=== PATIENT | female | born 1960 | race Caucasian/White ===

== ENCOUNTER 2017-12-26 08:32 | Emergency (ER) | payer MEDICARE | END 2017-12-26 11:32 | disposition home or self-care (01) | LOC: D.ER 08:32 | DX: S46.002A Unspecified injury of muscle(s) and tendon(s) of the rotator cuff of left shoulder, initial encounter (principal); Y04.2XXA Assault by strike against or bumped into by another person, initial encounter; Y93.89 Activity, other specified; Y92.019 Unspecified place in single-family (private) house as the place of occurrence of the external cause; S50.12XA Contusion of left forearm, initial encounter; M79.1 Myalgia; T14.8XXA Other injury of unspecified body region, initial encounter ==

== ENCOUNTER → 2018-01-15 08:40 | Outpatient (CLI) | payer MEDICARE | END | disposition home or self-care (01) | LOC: D.MRI 08:40 | DX: M25.512 Pain in left shoulder (principal) ==

== ENCOUNTER → 2019-06-15 08:30 | Outpatient (CLI) | payer MEDICARE | END | disposition home or self-care (01) | LOC: D.HCCARDIO 08:30 → D.HCCECHO 09:30 | PROVIDERS: ATTEND Internal Medicine Cardiovascular Disease | DX: R07.9 Chest pain, unspecified (principal) ==

== ENCOUNTER 2019-07-08 11:47 | Outpatient (CLI) | payer MEDICARE ==
[~2019-07-08] VITALS: Ht 149.9 cm; Wt 67.3 kg
--- NOTE | ~2019-07-08 | HEMODYNAMI ---
PATIENT:MARTA POST MEDICAL RECORD: [id number] : 64 LOCATION:D.CAT ADMISSION DATE: 07/08/19 Generatedon:07/08/201916:07 Patient name: MARTA POST Patient #: [id number] SSN: [id number] : 1960 Date of study: 07/08/2019 Page: Of Hemodynamic Procedure Report Patient Data Patient Demographics Procedure consent was obtained First Name: MARTA Gender: Female Last Name: SINCERE : 1960 [facility] Initial: J Age: 58 year(s) Patient #: [id number] Race: SSN: [id number] Additional ID: [id number] Contact details [address]: [address] [place] [address] State: [place] City: [place] Zip code: [address] Past Medical History Allergies: No known allergies Admission Admission Data Admission Date: 07/08/2019 Admission Time: 11:47 Arrival Date: 07/08/2019 Arrival Time: 0:00 Admit Source: Other Insurance Payor: Medicare [facility] #: [id number] Height (in.): 59 BSA: 1.62 (m2) Height (cm.): 149.86 BMI: 29.94 (kg/m2) Weight (lbs.): 148.22 Weight (kg.): 67.23 Lab Results Lab Result Date: 07/08/2019 Lab Result Time: 0:00 Biochemistry Name Units Result Min Max BUN mg/dl 9 --(*---)-- 7 18 Creatinine mg/dl 0.9 --(-*--)-- 0.6 1.3 eGFR ml/min 69 *-(----)-- 90 120 NONAFRICAN CBC Name Units Result Min Max Hematocrit % 42.7 --(*---)-- 42 54 Hemoglobin g/dl 14.4 --(*---)-- 13.5 17.5 Procedure Procedure Types Cath Procedure Diagnostic Procedure C [facility] w/Coron[facility] Procedure Description Procedure Date Procedure Date: 07/08/2019 Procedure Start Time: 15:51 Procedure End Time: 16:06 Procedure Staff Name Function Chico Marcos MD Performing Physician Kemi Lacey RT Monitor Patrice Pollack RT Monitor Marta Alvarez RT Scrub Ranjeet Lee RN Nurse Procedure Data Cath Procedure Fluoroscopy Diagnostic fluoroscopy Total fluoroscopy Time: 0 time: 0 min min Diagnostic fluoroscopy Total fluoroscopy dose: 256 dose: 256 mGy mGy Contrast Material Contrast Material Type Amount (ml) Isovue 370 59 Entry Location Entry Primary Successful Side Size Upsize Upsize Entry Closure Succes sful Closure Location (Fr) 1 (Fr) 2 (Fr) Remarks Device Remarks Femoral Right 5 Fr Exoseal artery Estimated blood loss: 5 ml Diagnostic catheters Device Type Used For End Catheter Placement MULTIPACK JL 4.0 5Fr Procedure catheter MULTIPACK 3DRC 5Fr Procedure catheter MULTIPACK Pigtail 5 Fr Procedure catheter Procedure Complications No complications Procedure Medications Medication Administration Route Dosage 0.9% NaCl I.V. 100 ml/hr Oxygen etCO2 Nasal cannula 2 l/min Heparin Flush Bag added to field 2 bags (1000units/500ml NS) Lidocaine 2% added to field 20 Versed I.V. 2 mg Fentanyl I.V. 100 mcg Versed I.V. 1 mg Hemodynamics Rest BSA: 1.62 (m2) HGB: 14.4 (g/dl) O2 Consumption: Estimated: 152.34 (ml/min) O2 Co nsumption indexed: Estimated:94.04 (ml/min/m) Heart Rate: 65 (bpm) Pressure Samples Time Site Value (mmHg) Purpose Heart Use Rate(bpm) 16:00 LV 119/0,15 Snapshot 77 16:01 AO 90/42(64) Pullback 72 16:01 LV 94/1,10 Pullback 72 Gradients Valve Time Site 1 Site 2 Mean SEP/DFP Peak To Heart Use (mmHg) (sec/min) Peak Rate (mmHg) (bpm) Aortic 16:01 LV AO 16 12 4 72 94/1,10 90/42(64) Calculations Valve P-P Mean Valve Index Valve Source Name Gradient Area Flow (cm2) Aortic 4 16 4 16 Snapshots Pre Cath Intra NCS Post Cath Vital Signs Time Heart Resp SPO2 etCO2 NIBP Rhythm Pain Sedation Rate (ipm) (%) (mmHg) (mmHg) Status Level (bpm) 15:36:08 64 21 97 30.4 119/57(83) NSR 0 (11) 10(A) , No pain 15:40:20 64 28 96 31.2 108/60(71) NSR 0 (11) 10(A) , No pain 15:44:32 62 15 96 33.4 98/52(68) NSR 0 (11) 10(A) , No pain 15:48:40 60 60 95 38.8 102/50(68) NSR 0 (11) 10(A) , No pain 15:52:49 63 11 97 19 106/51(77) NSR 0 (11) 10(A) , No pain 15:56:57 67 13 97 30.4 98/50(72) NSR 0 (11) 9(A) , No pain 16:01:03 68 14 96 36.5 94/50(66) NSR 0 (11) 9(A) , No pain 16:05:09 66 36 97 35 100/54(73) NSR 0 (11) 9(A) , No pain Medications Time Medication Route Dose Verified Delivered Reason Notes Eff ectiveness by by 15:37:38 0.9% NaCl I.V. 100 Ranjeet Ranjeet Per ml/hr Jesus Lee physician RN RN 15:37:48 Oxygen etCO2 2 Ranjeet Ranjeet for low 02 Nasal l/min Lorigan Lorigan sats cannula RN RN 15:37:57 Heparin Flush added 2 Ranjeet Ranjeet used for Bag to bags Lorigan Lorigan procedure (1000units/500ml field RN RN NS) 15:38:08 Lidocaine 2% added 20ml Ranjeet Ranjeet for local to vial Lorigan Lorigan anesthetic field RN RN 15:52:12 Versed I.V. 2 mg Ranjeet Ranjeet for Lorigan Lorigan sedation RN RN 15:52:20 Fentanyl I.V. 100 Ranjeet Ranjeet for mcg Lorigan Lorigan sedation RN RN 15:54:29 Versed I.V. 1 mg Ranjeet Ranjeet for Lorigan Lorigan sedation RN phlebotomy technician Log Time Note 15:08:36 Informed consent obtained and on chart 15:09:42 Patient allergic to No known allergies 15:09:49 Arrival Date: 07/08/2019 12:00:00 AM 15:10:01 Insurance Payor : Medicare 15:11:31 Patient Height : 59 inches 15:11:42 Patient Weight : 148.22 lbs 15:13:24 Lab Result : eGFR NONAFRICAN 69 ml/min 15:13:24 Lab Result : Creatinine 0.9 mg/dl 15::24 Lab Result : BUN 9 mg/dl 15:13:24 Lab Result : Hematocrit 42.7 % 15:13:24 Lab Result : Hemoglobin 14.4 g/dl 15:13:38 Diagnostic Cath Status : Elective 15:14:15 Admit Source: Other 15:14:21 Procedure Status Elective Heart Cath (OP). 15:14:29 Risk of Mortality: 0.6 15:14:33 Risk of blood transfusion: 0.3 15:14:36 Risk of HOLGER: 1.0 15:14:42 Lab results completed and on chart. 15:15:08 Stress Test: yes; abnormal ANTERIORALLY AND APICAL 15:22:45 Patrice GRIFFITHS(R) sent for patient. Start room use. 15:22:56 Time tracking: Regular hours (M-F 7:00 - 5:00) 15:23:03 Plan of Care:Hemodynamics will remain stable., Cardiac rhythm will remain stable., Comfort level will be maintained., Respiratory function will remain adequate., Patient/ family verbilizes understanding of procedure., Procedure tolerated without complication., Recovers from procedure without complications.. 15:30:31 Patient received from Pre/Post Procedure Room to CCL 1 Alert and oriented. Tansferred to table in Supine position. 15:30:33 Warm blankets applied, and deana hugger turned on for patient comfort. 15:30:33 Correct patient and procedure confirmed by team. 15:30:37 ECG and BP/O2 sat monitors applied to patient. 15:30:49 H&P Date Dictated: 07/08/2019 Within 30 days and on chart.. 15:30:51 Pre-procedure instructions explained to patient. 15:30:51 Pre-op teaching completed and patient verbalized understanding. 15:30:53 Family in waiting room. 15:30:55 Patient NPO since Midnight. 15:31:02 Alarms reviewed by R. N. 15:31:02 Sharps counted by scrub and verified by R.N. 15:31:07 Snore? Yes 15:31:17 Dentures? Yes IN TIGHT 15:31:19 Sleep apnea? No 15:31:20 Deviated septum? No 15:31:21 Opens mouth fully? Yes 15:31:22 Sticks out tongue? Yes 15:31:24 Airway obstruction? No ? 15:31:28 Is the patient allergic to Iodine/contrast media? No. 15:31:30 Was the patient premedicated? Yes 15:31:32 Is patient on blood thinner?No 15:31:34 Patient diabetic? No. 15:31:36 If diabetic: On Metformin? N/A 15:31:40 Patient not . Patient is over age 55. 15:31:44 ----Pre-sedation anethsthesia assessment.---- 15:31:51 Previous problem with sedation/anesthesia? No ? 15:34:20 Pre procedure: right dorsailis pedis pulse 2+ Normal; easily identifiable; not easily obliterated 15:34:23 Patient pain scale 0/10 ?. 15:34:32 IV patent on arrival in right antecubital with 0.9% NaCl at [facility]. 15:34:52 Right groin area was prepped with chlora-prep and draped in sterile fashion 15:34:58 Vital chart was started 15:35:00 Full Disclosure recording started 15:35:11 ACC Patient presents with Stable Angina CCS Anginal Class 1--Ordinary physical activity does not cause angina, angina occurs with strenuos, rapid, or prolonged activity.. 15:35:20 Rhythm: sinus rhythm 15:35:23 Baseline sample Acquired. 15:37:38 0.9% NaCl 100 ml/hr I.V. was administered by Ranjeet Lee RN; Per physician; Verbal order read back and verified. 15:37:48 Oxygen 2 l/min etCO2 Nasal cannula was administered by Ranjeet Lee RN; for low 02 sats; Verbal order read back and verified. 15:37:57 Heparin Flush Bag (1000units/500ml NS) 2 bags added to field was administered by Ranjeet Lee RN; used for procedure; Verbal order read back and verified. 15:38:08 Lidocaine 2% 20ml vial added to field was administered by Ranjeet Lee RN; for local anesthetic; Verbal order read back and verified. 15:39:36 Use device set Femoral Dx 15:39:37 ACIST Syringe (89142) opened to sterile field. 15:39:38 Bag Decanter (2001S) opened to sterile field. 15:39:39 Medline Cath Pack ([id number]) opened to sterile field. 15:39:42 ACIST Hand Control (43096) opened to sterile field. 15:39:42 ACIST Manifold (35245) opened to sterile field. 15:39:44 Tegaderm 4 x 4 (1626W) opened to sterile field. 15:39:45 SHEATH 5FR Benton (TAL090) opened to sterile field. 15:39:46 EMERALD Guide Wire (539-382) opened to sterile field. 15:39:48 DIAGNOSTIC Multipack 5Fr catheter set ([id number]) opened to sterile field. 15:50:26 --------ALL STOP TIME OUT------ 15:50:26 Final Timeout: patient, procedure, and site verified with staff and physician. All members of the team are in agreement. 15:50:28 Right groin site verified by team. 15:50:32 Fire Safety Assessment: A--An alcohol-based skin anteseptic being used preoperatively., C--Open oxygen or nitrous oxide is being used., D--An ESU, laser, or fiber-optic light is being used. 15:50:37 Physical assessment completed. ASA score P 2 - A patient with mild systemic disease as per Chico Marcos MD. 15:50:41 2) 60-89 Mildly reduced kidney function, and other findings (as for stage 1) point to kidney disease. 15:50:45 Maximum allowable contrast dose (3.7 X eGFR X 0.75)191 ml. 15:50:49 Sedation plan: IV Moderate Sedation Medication:Versed, Fentanyl 15:50:55 Procedure started. 15:51:03 Local anesthetic to right femoral artery with Lidocaine 2% by Chico Marcos MD.INITIAL ACCESS ONLY 15:51:52 A 5 Fr sheath was inserted into the Right Femoral artery 15:52:12 Versed 2 mg I.V. was administered by Ranjeet Lee RN; for sedation; Verbal order read back and verified. 15:52:20 Fentanyl 100 mcg I.V. was administered by Ranjeet Lorigan RN; for sedation; Verbal order read back and verified. 15:53:22 A MULTIPACK JL 4.0 5Fr catheter was advanced over the wire and used for Procedure. 15:54:11 LCA angiography performed. 15:54:29 Versed 1 mg I.V. was administered by Ranjeet Lee RN; for sedation; Verbal order read back and verified. 15:56:42 Catheter exchanged over wire. 15:56:52 A MULTIPACK 3DRC 5Fr catheter was advanced over the wire and used for Procedure. 15:58:14 RCA angiography performed. 15:58:29 ACCDominant side:Left 15:58:45 Catheter exchanged over wire. 15:59:37 A MULTIPACK Pigtail 5 Fr catheter was advanced over the wire and used for Procedure. 16:01:04 LV gram done using DIA 16:01:10 Injector settings: Ml/sec: 10, Volume: 20, 16:01:11 LV hemodynamics recorded. 16:01:16 EF : 60 % 16:01:59 Catheter removed. 16:02:02 EXOSEAL 5Fr (EX500) opened to sterile field. 16:02:13 Sheath removed intact; hemostasis achieved with Exoseal to the Right Femoral artery. 16:02:46 Contrast amount:Isovue 370 59ml. 16:02:49 Maximum allowable dose exceeded? No. 16:02:51 Sharps counted by scrub and verified by R.N. 16:02:52 Procedure ended.(Physican Out) 16:03:02 Fluoroscopy time 00.00 minutes. 16:03:07 Fluoroscopy dose: 256 mGy 16:03:07 Flurop Dose total: 256 16:03:12 Dose Area Product 79218 mGy/cm. 16:03:19 Post-op/insertion site Right Femoral artery dressed using a 4 x 4 and Tegaderm. 16:03:25 Post right femoral artery:stable, soft, clean and dry 16:03:28 Post Procedure Pulses reassessed and unchanged 16:03:32 Post procedure: right dorsailis pedis pulse 2+ Normal; easily identifiable; not easily obliterated. 16:03:37 Post-procedure physical assessment completed. ASA score P 2 - A patient with mild systemic disease as per Chico Marcos MD. 16:03:40 Post procedure rhythm: unchanged. 16:03:44 Estimated blood loss: 5 ml 16:03:47 Post procedure instruction explained to patient.Patient verbalizes understanding. 16:03:51 Patient needs reinforcement of post procedure teaching. 16:04:30 Procedure and supply charges have been captured, reviewed, submitted and are correct. 16:04:34 Procedure Complication : No complications 16:04:38 [facility] Findings: mild to moderate CAD (<70%) 16:04:41 Operative report dictated upon procedure completion. 16:04:42 See physician's report for complete and final results. 16:04:43 Report given to Pre/Post Procedure Room. 16:04:47 Patient transfered to Pre/Post Procedure Room with Stretcher. 16:06:35 Vital chart was stopped 16:06:37 Procedure ended. 16:06:37 Full Disclosure recording stopped 16:06:43 End room use (Document Last) 16:07:19 End room use (Document Last) Device Usage Item Name Manufacture Quantity Catalog Hospital Part Current Minimal L ot# / Number Charge Number Stock Stock Serial# Code ACIST Acist 1 62818 [id number] 630380 959084 20 Syringe Medical (19345) Systems Inc Bag Microtek 1 2001S 144523 57957 995811 5 Decanter Medical Inc. () Medline Medline 1 [id number] 805869 05048 811456 5 Cath Pack ([id number]) ACIST Hand Acist 1 92799 977078 576159 350341 5 Control Medical (67432) Systems Inc ACIST Acist 1 42643 355354 090031 624629 5 Manifold Medical (74109) Systems Inc Tegaderm 4 3M 1 1626W 653165 760607 083651 5 x 4 (1626W) SHEATH 5FR Terumo 1 MCI646 648893 145164 142026 5 Benton (UHI998) EMERALD Cardinal 1 502-455 120890 224600 747934 5 Guide Wire Health (502-455) DIAGNOSTIC Cardinal 1 BA4226 757004 87224 224112 30 Multipack Health 5Fr catheter set ([id number]) MULTIPACK Cardinal 1 610052 5 JL 4.0 5Fr Health catheter MULTIPACK Cardinal 1 308009 5 3DRC 5Fr Health catheter MULTIPACK Cardinal 1 121146 5 Pigtail 5 Health Fr catheter EXOSEAL 5Fr Cardinal 1 EX500 203516 657016 249844 10 (EX500) Health Signature Audit [place] Stage Time Signature Unsigned Intra-Procedure 07/08/2019 Kemi Lacey 4:06:59 PM RT(R) Intra-Procedure 07/08/2019 Ranjeet 4:07:19 PM Jesus MORENO Intra-Procedure 07/08/2019 Chico Marcos MD 4:07:39 PM [facility] [address] [place] [address]
[2019-07-08] MEDS ORDERED: NITROQUICK0.4 MG SL (12:50)
[2019-07-08] MEDS ORDERED: LIPITOR10 MG PO (12:51)
[2019-07-08] MEDS ORDERED: CATAPRES0.1 MG PO (12:51)
[2019-07-08] MEDS ORDERED: TOPAMAX50 MG PO (12:51)
[2019-07-08] MEDS ORDERED: REMERON15 MG PO (12:52)
[2019-07-08 13:03] VITALS: BP 110/54; Ht 149.9 cm; Wt 67.3 kg
[2019-07-08 13:20] LABS: BASOPHILS 0.1 % (0-2); EOSINOPHILS 3.2 % (0-7); HEMATOCRIT 42.7 % (36.0-48.0); HEMOGLOBIN 14.4 g/dL (12-16); IMMATURE GRANULOCYTES 0.3 % (0-5); LYMPHOCYTES 30.4 % (15-50); MCH 32.6 pg (26.0-34.0); MCHC 33.7 g/dL (31.0-37.0); MCV 96.6 fL (80.0-100.0); MEAN PLATELET VOLUME 9.8 fL (7.4-10.4); MONOCYTES 6.3 % (2-11); NEUTROPHILS 59.7 % (40-80); PLATELET COUNT 186 10x3/uL (130-400); RBC 4.42 10x6/uL (4.00-5.40); RDW 13.2 % (11.5-14.5); WBC 7.8 10x3/uL (4.8-10.8)
[2019-07-08 13:37] LABS: ANION GAP 13.3 mmol/L (8-16); CALCIUM 9.4 mg/dL (8.5-10.1); CARBON DIOXIDE 24.6 mmol/L (21.0-32.0); CHOL - HDL RATIO 7.2 ratio (2.3-4.1); CREATININE - SERUM 0.9 mg/dL (0.6-1.3); LDL-HDL RATIO 4.8 ratio (1.5-3.5); POTASSIUM - SERUM 3.9 mmol/L (3.5-5.1)
--- NOTE | 2019-07-08 16:20 | NUR ---
PT RECEIVED VIA STRETCHER FROM TRAFFIC MONITOR SPECIALIST FOR RECOVERY. PT SLEEPING BUT VERBALLY AROUSABLE. PT DENIES PAIN OR DISCOMFORT. IV PATENT INFUSING VIA ORDERS. PT PLACED ON CARDIAC MONITORS, HR 70, BP 131/69, RR 17, SAT 99 ON 2LO2 VIA NC. R GROIN W 5FR EXOCELE, DRESSING CDI NO BLEEDING OR S/S HEMATOMA NOTED. LEG PINK AND WARM, PEDAL PULSES PALPABLE. CALL LIGHT IN REACH.
[2019-07-08] MEDS ORDERED: ISOSORBIDE MONO30 M1 PO (16:28)
--- NOTE | 2019-07-08 16:48 | NUR ---
PT SLEEPING, R GROIN SOFT NO BLEEDING OR SWELLING NOTED. LEG REMAINS PINK AND WARM, PEDAL PULSES PALPABLE. VSS. AT BEDSIDE, CALL LIGHT IN REACH
--- NOTE | 2019-07-08 16:59 | NUR ---
PT AMBULATED TO BR, VOIDING W/O DIFFICULITY. 1700 PT DISCHARGED TO WAITING IN PRIVATE VEHICLE. PT HAD ALL BELONGINGS AND DISCHARGE FOLDER.
--- NOTE | 2019-07-08 17:35 | NUR ---
PT RESTING W/O COMPLAINTS. TOLERATING PO FLUIDS W/O NAUSEA. VSS. R GROIN SOFT, DRESSING CDI NO BLEEEDING OR S/S HEMATOMA NOTED. OFFERED PT SANDWICH, SHE DOESN'T WANT AT THIS TIME. CALL LIGHT IN REACH, REMAINS AT BEDSIDE.
--- NOTE | 2019-07-08 18:04 | NUR ---
DISCHARGE INSTRUCTIONS REVIEWED W PT AND , BOTH VERBALIZED UNDERSTANDING. R GROIN REMAINS SOFT, NO BLEEDING OR SWELLING NOTED. MONITORS AND O2 REMOVED. PT UP TO DRESS FOR DISCHARGE
--- NOTE | 2019-07-08 18:11 | NUR ---
PT TO BR, VOIDING W/O DIFFICULITY. PT THEN DISCHARGED TO WAITING IN PRIVATE VEHICLE VIA WC. PT HAD ALL BELONGINGS AND DISCHARGE PAPERWORK.
== END 2019-07-08 18:10 | disposition home or self-care (01) ==
LOC: D.CATH 11:47
PROVIDERS: ATTEND Internal Medicine Cardiovascular Disease
DX: R94.30 Abnormal result of cardiovascular function study, unspecified (principal); C84.10 Sezary disease, unspecified site; Z72.0 Tobacco use; R53.83 Other fatigue; I20.9 Angina pectoris, unspecified